=== PATIENT | male | born 1980 | race Caucasian/White ===

== ENCOUNTER 2020-08-04 13:17 | Emergency (ER) | payer BC, SELFPAY ==
[2020-08-04] VITALS (8 sets, daily range): BP systolic 132–167; BP diastolic 89–112; PULSE 92–104; RESP 14–21; TEMP 37.2; O2SAT 96–100
--- NOTE | ~2020-08-04 | XR_ITS ---
EXAMINATION: XR chest 2V EXAM DATE: 08/04/2020 13:39 INDICATION: Left-sided chest pain. TECHNIQUE: Frontal and lateral projections of the chest obtained and reviewed. Comparison is made to prior examination from 11/15/2017. FINDINGS: The lungs are clear. There are no pleural effusions. The cardiomediastinal silhouette is within normal limits. There is no pneumothorax suspected. There is an old right 7th rib fracture an teriorly. IMPRESSION: Normal chest x-ray exam. Reviewed, dictated and finalized at location B. B THERAPY MANAGER IMPRESSION: Normal chest x-ray exam.
--- NOTE | 2020-08-04 13:23 | ECG_ITS ---
Measurements Intervals [place] Rate: 101 P: 40 MS: 183 QRS: -14 QRSD: 108 T: 9 QT: 324 QTc: 420 Interpretive Statements SINUS TACHYCARDIA DELAYED PRECORDIAL R/S TRANSITION VOLTAGE CRITERIA FOR LVH BORDERLINE T WAVE ABNORMALITY- INFERIOR LEADS BORDERLINE ECG Electronically Signed On 08-04-2020 13:38:42 THREAD CLIPPER by Quique Ramos D.O.
[2020-08-04 13:41] LABS: Basophils Absolute Auto 0.1 K/mm3 (0.0-0.1); Eosinophils Absolute Auto 0.4 K/mm3 (0-0.3); Eosinophils Percent Auto 5.3 % (0-4.4); Hematocrit 42.5 % (42.0-52.0); Hemoglobin 14.8 g/dL (14.0-18.0); Immature Granulocyte Absolute 0.03 K/mm3 (0.00-0.031); Immature Granulocyte Percent A 0.4 % (0-0.5); Lymphocytes Percent Auto 37.9 % (18.3-44.2); Mean Corpuscular HGB Conc 34.8 g/dl (32-36); Mean Corpuscular Hemoglobin 29.8 pg (26-34); Mean Corpuscular Volume 85.7 fl (80-100); Mean Platelet Volume 8.6 fl (7.4-10.4); Monocytes Absolute Auto 0.8 K/mm3 (0.1-0.6); Monocytes Percent Auto 9.5 % (2.6-8.5); Neutrophils Absolute Auto 3.8 K/mm3 (1.3-6.7); Neutrophils Percent Auto 45.9 % (45.5-73.1); Platelet Count Result 307 k/mm3 (150-375); Red Blood Count 4.96 M/mm3 (4.6-6.20); Red Cell Distribution Width 12.2 % (11.5-14.5); White Blood Count 8.2 K/mm3 (4.5-10.0)
[2020-08-04 13:53] LABS: INR 0.9; Prothrombin Time 12.8 Seconds (11.1-14.7)
[2020-08-04 13:54] LABS: Partial Thromboplastin Time 26.5 SECONDS (22.3-36.8)
[2020-08-04 13:57] LABS: Anion Gap 9 mmol/L (8-16); Blood Urea Nitrogen 16 mg/dL (9-20); Calcium 9.7 mg/dL (8.4-10.2); Carbon Dioxide 28 mmol/L (22-30); Chloride 103 mmol/L (98-107); Estimated CRCL calculation 139 ml/min; Estimated Glomerular Filt Rate > 60; Glucose 124 mg/dL (75-110); Potassium 3.9 mmol/L (3.4-5.0); Sodium 140 mmol/L (137-145)
[2020-08-04 14:09] LABS: Troponin I < 0.012 ng/mL (0.000-0.034)
[2020-08-04] MEDS: LORazepam INJ (*CRX) 2 MG/ML VIAL 1 MG IV PUSH (16:04)
--- NOTE | 2020-08-04 16:05 | ED.CHESTPAIN ---
HPI - Chest Pain General Chief Complaint: Chest Pain Stated Complaint: Chest heaviness Time Seen by Provider: 08/04/20 15:13 Source: patient Mode of arrival: ambulatory Limitations: no limitations History of Present Illness HPI narrative: Patient is a 40-year-old male who presents to emergency department for evaluation of left-sided body pain has had the symptoms for years typically comes and goes strong history of anxiety currently seeing primary care for this has been taken his 's Xanax sometimes with improvement. Patient notes today he had mild discomfort of the left chest as well as down the left side of his body which is consistent with his chronic findings is scheduled to see cardiology for this denies recent illness injury or trauma Related Data Home Medications Medication Instructions Recorded Confirmed amlodipine 08/04/20 Allergies Allergy/AdvReac Type Severity Reaction Status Date / Time No Known Allergies Allergy Verified 08/04/20 14:16 Review of Systems Review of Systems: All systems reviewed & are unremarkable except as noted in HPI and below PMFSH Family History Family History (Updated 03/08/17 @ 09:29 by DOCTOR UNKNOWN) Mother Patient's mother is in good health Father Patient's father is in good health Social History Social History Smoking status: Former smoker Smoking end date: 07/25/11 Exam Narrative: Exam Narrative: GENERAL: Well-appearing, well-nourished, and in no acute distress. HEAD: Normocephalic, atraumatic. EYES: PERRLA and EOMI. ENT: Nares clear, no rhinorrhea or epistaxis. Mucous membranes moist. CHEST: Clear to auscultation. No respiratory distress. No wheezes rales or rhonchi. Reproducible left-sided chest wall tenderness HEART: Regular rate and rhythm. No murmur heard. Normal peripheral pulses. ABDOMEN: Soft, nontender, nondistended EXTREMITIES: Normal range of motion. No edema. SKIN: Warm, dry, no rash. NEURO: No focal deficits. Alert and oriented x3. Cranial nerves II through XII grossly intact PSYCH: Normal mood and affect. Course Course Emergency Course: Patient symptoms largely chronic no high risk changes in the evaluation today felt appropriate for continued evaluation by primary care Vital Signs Vital signs: Vital Signs Temperature 98.9 F 08/04/20 13:25 Pulse Rate 104 H 08/04/20 13:25 Respiratory Rate 14 08/04/20 13:25 Blood Pressure 167/98 H 08/04/20 13:25 Pulse Oximetry 100 08/04/20 13:25 Temperature 98.9 F 08/04/20 13:25 Pulse Rate 95 08/04/20 14:46 Respiratory Rate 20 08/04/20 14:46 Blood Pressure 132/89 08/04/20 14:46 Pulse Oximetry 96 08/04/20 14:46 MDM - Chest Pain MDM Narrative Medical decision making narrative: Patients EKGs and labs are without significant high risk changes. Cardiac risk factors were reviewed. Patient is felt likely to be low risk for ACS and reasonable for further risk stratification testing as an outpatient. Pain was not sudden or maximal in onset without tearing or ripping. quality. No other signs or symptoms to suggest aortic dissection. A low-risk Wells criteria is noted. PE is felt to be unlikely. No pneumonia or URI symptoms were seen on evaluation today. Patient is felt to b reasonable for continued evaluation as an outpatient. Lab Data Result diagrams: 08/04/20 13:32 08/04/20 13:32 Labs: Lab Results 08/04/20 08/04/20 08/04/20 Range/Units 13:32 13:32 13:32 WBC 8.2 (4.5-10.0) K/mm3 RBC 4.96 (4.6-6.20) M/mm3 Hgb 14.8 (14.0-18.0) g/dL Hct 42.5 (42.0-52.0) % MCV 85.7 (80-100) fl MCH 29.8 (26-34) pg MCHC 34.8 (32-36) g/dl RDW 12.2 (11.5-14.5) % Plt Count 307 (150-375) k/mm3 MPV 8.6 (7.4-10.4) fl Immature Gran % (Auto) 0.4 (0-0.5) % Neut % (Auto) 45.9 (45.5-73.1) % Lymph % (Auto) 37.9 (18.3-44.2) % [place] % (Auto) 9.5
== END 2020-08-04 16:35 | disposition home or self-care (01) ==
PROVIDERS: Emergency Medicine; Emergency Provider Emergency Medicine; PCP Emergency Medicine
DX: R07.89 Other chest pain (principal); Z87.891 Personal history of nicotine dependence; R00.0 Tachycardia, unspecified; R94.31 Abnormal electrocardiogram [ECG] [EKG]
CPT/HCPCS: 36415; 71046; 80048; 84484; 85025; 85610; 85730; 93005; 96374; 99284; J2060

== ENCOUNTER 2020-08-27 06:39 | Outpatient (CLI) | payer BC, SELFPAY ==
--- NOTE | ~2020-08-27 | MR_ITS ---
EXAMINATION: MR cervical spine wo con DATE: 08/27/2020 07:45 INDICATION: Neck pain. Weakness. TECHNIQUE: Magnetic resonance imaging (MRI) of the cervical spine was performed without intravenous c ontrast. Sequences included sagittal T2-weighted FSE, sagittal STIR FSE, sagittal T1-weighted FSE, ax ial MERGE, and axial T2-weighted FSE. COMPARISON: CT cervical spine 01/22/2012 FINDINGS: There is 8 degrees levocurvature of cervical spine. Vertebral body heights are normal. Inte rvertebral disc heights are normal. The spinal cord signal intensity is normal. The following disc le vels are specifically discussed: C2-C3: The disc does not extend beyond the endplate margin. There is no uncovertebral joint osteoarth ritis. There is severe bilateral facet joint osteoarthritis. There is no neural foraminal stenosis. T here is no central canal stenosis. C3-C4: There is a central protrusion. There is mild bilateral uncovertebral joint osteoarthritis. The re is mild right facet joint osteoarthritis. There is mild bilateral neural foraminal stenosis. There is mild central canal stenosis. C4-C5: The disc does not extend beyond the endplate margin. There is no uncovertebral joint osteoarth ritis. There is mild bilateral facet joint osteoarthritis. There is no neural foraminal stenosis. The re is no central canal stenosis. C5-C6: There is a left central extrusion. There is mild bilateral uncovertebral joint osteoarthritis. There is mild bilateral facet joint osteoarthritis. There is mild left neural foraminal stenosis. Th ere is mild central canal stenosis with ventral indentation of the spinal cord. C6-C7: The disc is bulging with superimposed central extrusion. There is mild bilateral uncovertebral joint osteoarthritis. There is severe left facet joint osteoarthritis. There is mild bilateral neura l foraminal stenosis. There is mild central canal stenosis. C7-T1: There is a left central extrusion. There is mild left uncovertebral joint osteoarthritis. Ther e is moderate bilateral facet joint osteoarthritis. There is mild bilateral neural foraminal stenosis . There is mild central canal stenosis. IMPRESSION: 1. Mild cervical spondylosis. Reviewed, dictated and finalized at location A. UTER TYPESETTER KEYLINER
--- NOTE | ~2020-08-27 | MR_ITS ---
EXAMINATION: MR brain/brain stem wo con DATE: 08/27/2020 07:35 INDICATION: Left hemiparesis. TECHNIQUE: Magnetic resonance imaging (MRI) of the brain and brainstem was performed without intraven ous contrast. Sequences included sagittal and axial T1-weighted FSE, axial diffusion-weighted FS EPI, axial T2*-weighted GRE, axial T2-weighted FLAIR Propeller, and axial T2-weighted Propeller. Apparent diffusion coefficient (ADC) maps were created. COMPARISON: Head CT 01/22/2012 FINDINGS: There are scattered areas of nonspecific increased T2-weighted signal intensity in the cere bral white matter. There is no intracranial hemorrhage, acute infarction, or abnormal intracranial ma ss lesion. The ventricles are normal in size. There is mucosal thickening in the paranasal sinuses in cluding complete opacification of the posterior right ethmoid sinuses. The mastoid air cells are norm al. The orbits are normal. IMPRESSION: 1. Mild nonspecific cerebral white matter disease. The differential diagnosis includes premature dry cell tester shaina small vessel ischemic disease (especially if the patient has cardiovascular risk factors), demyel inating disease such as multiple sclerosis, drug abuse, vasculitis, or reactive astrocytosis (gliosis ) secondary to nonspecific etiology. Reviewed, dictated and finalized at location A. TENANCE MECHANIC 2ND SHIFT IMPRESSION: 1. Mild nonspecific cerebral white matter disease. The differential diagnosis i ncludes premature chronic small vessel ischemic disease (especially if the christofer ent has cardiovascular risk factors), demyelinating disease such as multiple sc lerosis, drug abuse, vasculitis, or reactive astrocytosis (gliosis) secondary t o nonspecific etiology.
== END 2020-08-27 06:40 | disposition home or self-care (01) ==
PROVIDERS: PCP Emergency Medicine; Visit Provider Psychiatry & Neurology Neurology
DX: M47.892 Other spondylosis, cervical region (principal); R93.0 Abnormal findings on diagnostic imaging of skull and head, not elsewhere classified
CPT/HCPCS: 70551; 72141

== ENCOUNTER → 2020-09-06 00:54 | Outpatient (CLI) | payer BC, SELFPAY ==
[2020-09-06 19:48] LABS: SARS-CoV-2 RNA PCR Negative
== END ==
PROVIDERS: PCP Emergency Medicine; Visit Provider Emergency Medicine
DX: Z01.812 Encounter for preprocedural laboratory examination (principal); Z20.822 Contact with and (suspected) exposure to COVID-19
CPT/HCPCS: C9803; U0003; U0005

== ENCOUNTER 2020-09-10 08:35 | Outpatient (CLI) | payer BC, SELFPAY ==
--- NOTE | 2020-09-10 09:11 | EST_ITS ---
Patient Info Name: Shashi Gorman Age: 40 years : 1980 Gender: Male Ht: 68 in Wt: 210 lbs BSA: 2.17 m2 Exam Date: 09/10/2020 9:46 AM Exam Location: [facility] Stress Patient Status: Outpatient Admit Date: 09/10/2020 Staff Ordering Physician: Quique Ramos DO Attending Provider: Quique Ramos DO Exercise Technologist: Akshat Odom RDCS, RT Exercise Physician: Quique Ramos DO Exam Type: CA stress test treadmill Study Info A treadmill exercise stress test was performed. Summary 1. 1. Negative Skyler exercise stress test for ischemic ST changes by ECG criteria. 2. 2. Good functional capacity, achieving 12 METs of workload. 3. 3. Appropriate HR response to exercise. 4. 4. Appropriate HR recovery at 1 minute post exercise. 5. 5. No imaging with stress testing. 6. 6. Patient informed of the above results. Protocol: Skyler Stress ECG Details Stage: REST Duration (min): 4 min : 38 sec Speed (mph): 0.0 Grade (%): 0 HR (bpm): 77 SBP (mmHg): 127 DBP (mmHg): 88 METS: --- Stage: REST Duration (min): 4 min : 41 sec Speed (mph): 0.0 Grade (%): 0 HR (bpm): 77 SBP (mmHg): 127 DBP (mmHg): 88 METS: --- Stage: STAGE 1 Duration (min): 1 min : 0 sec Speed (mph): 1.7 Grade (%): 10 HR (bpm): 100 SBP (mmHg): 127 DBP (mmHg): 88 METS: --- Stage: STAGE 1 Duration (min): 2 min : 0 sec Speed (mph): 1.7 Grade (%): 10 HR (bpm): 102 SBP (mmHg): 127 DBP (mmHg): 88 METS: --- Stage: STAGE 1 Duration (min): 3 min : 0 sec Speed (mph): 1.7 Grade (%): 10 HR (bpm): 105 SBP (mmHg): 156 DBP (mmHg): 78 METS: --- Stage: STAGE 2 Duration (min): 1 min : 0 sec Speed (mph): 2.5 Grade (%): 12 HR (bpm): 113 SBP (mmHg): 156 DBP (mmHg): 78 METS: --- Stage: STAGE 2 Duration (min): 2 min : 0 sec Speed (mph): 2.5 Grade (%): 12 HR (bpm): 115 SBP (mmHg): 153 DBP (mmHg): 65 METS: --- Stage: STAGE 2 Duration (min): 3 min : 0 sec Speed (mph): 2.5 Grade (%): 12 HR (bpm): 118 SBP (mmHg): 153 DBP (mmHg): 65 METS: --- Stage: STAGE 3 Duration (min): 1 min : 0 sec Speed (mph): 3.4 Grade (%): 14 HR (bpm): 130 SBP (mmHg): 215 DBP (mmHg): 45 METS: --- Stage: STAGE 3 Duration (min): 2 min : 0 sec Speed (mph): 3.4 Grade (%): 14 HR (bpm): 137 SBP (mmHg): 215 DBP (mmHg): 45 METS: --- Stage: STAGE 3 Duration (min): 3 min : 0 sec Speed (mph): 3.4 Grade (%): 14 HR (bpm): 143 SBP (mmHg): 215 DBP (mmHg): 45 METS: --- Stage: STAGE 4 Duration (min): 1 min : 0 sec Speed (mph): 4.2 Grade (%): 16 HR (bpm): 155 SBP (mmHg): 215 DBP (mmHg): 45 METS: --- Stage: STAGE 4 Duration (min): 2 min : 0 sec Speed (mph): 4.2 Grade (%): 16 HR (bpm): 161 SBP (
== END 2020-09-10 08:36 | disposition home or self-care (01) ==
PROVIDERS: PCP Emergency Medicine; Visit Provider Internal Medicine Cardiovascular Disease
DX: R07.9 Chest pain, unspecified (principal)
CPT/HCPCS: 93017

== ENCOUNTER 2020-09-10 08:38 | Outpatient (CLI) | payer BC, SELFPAY ==
[2020-09-04 08:42] VITALS: BMI 32.0
[2020-09-10] VITALS (7 sets, daily range): BP systolic 122–140; BP diastolic 66–82; PULSE 64–87; RESP 18–28; TEMP 36.5; O2SAT 96–99
--- NOTE | ~2020-09-10 | XR_ITS ---
EXAMINATION: XR lumbar puncture diagnostic DATE: 09/10/2020 11:50 INDICATION: Abnormal brain MR . Extremity weakness. TECHNIQUE: The procedure including the risks and benefits was discussed with the patient. Risks discu ssed included spinal headache, cerebrospinal fluid leak, bleeding, and infection. The patient underst ood the risks and agreed to proceed. A timeout was performed to verify the patient's name, date of , and procedure to be performed. The skin overlying the L4-L5 level was prepped and draped in usual sterile fashion. Subcutaneous 1% lidocaine was used for local anesthesia. A 22 gauge spinal n eedle was advanced under fluoroscopic guidance. The needle was removed and the entry site was cleaned and dressed. There were no immediate complications. The patient was taken to the nursing area for o bservation. FINDINGS: Real-time fluoroscopy demonstrates the needle at the L4-L5 level. Opening pressure was 21 c m water. (Normal range is variably defined as 6-20 cm water and up to 25 cm water in obese patients. Pressure >25 cm water is one of the modified Dandy criteria for idiopathic intracranial hypertension) . 15 mL of clear, colorless fluid was collected in 4 tubes. IMPRESSION: 1. Successful fluoro-guided lumbar puncture with opening pressure of 21 cm water. Reviewed, dictated and finalized at location A. ION ARTIST IMPRESSION: 1. Successful fluoro-guided lumbar puncture with opening pressure of 21 cm tracie meyer
[2020-09-10 10:38] LABS: Basophils Percent Auto 0.7 % (0.2-1.2); Eosinophils Absolute Auto 0.3 K/mm3 (0-0.3); Hematocrit 43.6 % (42.0-52.0); Hemoglobin 14.9 g/dL (14.0-18.0); Immature Granulocyte Absolute 0.01 K/mm3 (0.00-0.031); Immature Granulocyte Percent A 0.2 % (0-0.5); Lymphocytes Absolute Auto 2.34 K/mm3 (0.9-3.2); Lymphocytes Percent Auto 41.2 % (18.3-44.2); Mean Corpuscular HGB Conc 34.2 g/dl (32-36); Mean Corpuscular Volume 87.9 fl (80-100); Mean Platelet Volume 8.7 fl (7.4-10.4); Monocytes Absolute Auto 0.7 K/mm3 (0.1-0.6); Monocytes Percent Auto 12.7 % (2.6-8.5); Neutrophils Absolute Auto 2.2 K/mm3 (1.3-6.7); Neutrophils Percent Auto 39.2 % (45.5-73.1); Platelet Count Result 291 k/mm3 (150-375); Red Blood Count 4.96 M/mm3 (4.6-6.20); Red Cell Distribution Width 12.5 % (11.5-14.5); White Blood Count 5.7 K/mm3 (4.5-10.0)
[2020-09-10 10:47] LABS: INR 0.9; Prothrombin Time 13.2 Seconds (11.1-14.7)
[2020-09-10 11:59] LABS: Glucose CSF 56 mg/dL (40-70); Total Protein CSF 72 mg/dL (12-60)
[2020-09-10 12:38] LABS: Appearance CSF Clear (Clear); CSF source CSF; Color CSF Colorless (Colorless); Lymphocytes CSF 91 % (40-80); Macrophages CSF 1; Monocytes CSF 8 % (15-45); Nucleated Cell CSF 6 /uL (0-5); Red Blood Cell CSF 3 (0-2)
[2020-09-22 13:36] LABS: Albumin, CSF 36.6 mg/dL (8.0-42.0); Albumin, Serum 5.1 g/dL (3.5-5.2); IgG Index, CSF 0.47 (<0.66); IgG, CSF 4.6 mg/dL (0.8-7.7); Immunoglobulin G, Serum 1370 mg/dL (600-1640); Myelin Basic Protein, CSF <2.0 mcg/L (2.0-4.0); Synthesis Rate IgG, CSF -3.9 mg/24 h (-9.9-3.3)
== END 2020-09-10 13:52 | disposition home or self-care (01) ==
PROVIDERS: Radiology Diagnostic Radiology; PCP Emergency Medicine; Visit Provider Emergency Medicine
DX: R93.0 Abnormal findings on diagnostic imaging of skull and head, not elsewhere classified (principal); R53.1 Weakness
CPT/HCPCS: 36415; 62328; 82040; 82042; 82784; 82945; 83873; 83916; 84157; 85025; 85610; 87070; 88108; 89051

== ENCOUNTER 2020-09-22 13:18 | Outpatient (CLI) | payer BC, SELFPAY ==
--- NOTE | ~2020-09-22 | US_ITS ---
EXAMINATION: US carotid duplex BI DATE: 09/22/2020 13:41 INDICATION: Left hemiparesis. TECHNIQUE: Grayscale, color Doppler, and pulsed Doppler images of the cervical carotid arteries were obtained. The degree of vessel stenosis is placed in one of the following categories: normal, <50%, 5 0-69%, >=70% but less than near-occlusion, near-occlusion, or total occlusion. Note that percent sten osis relative to normal distal artery lumen diameter is indirectly measured from velocity measurement s as described by Tavon, et al. Radiology 2003; 229:340-346. COMPARISON: None. FINDINGS: RIGHT: The right common carotid artery (CCA) peak systolic velocity (PSV) is 81 cm/s. The right internal car otid artery (ICA) PSV is 119 cm/s. The right ICA end-diastolic velocity (EDV) is 27 cm/s. The right I CA/CCA PSV ratio is 1.9. Grayscale and color Doppler images yield an estimate of <50% diameter reduct ion from plaque in the ICA. There is antegrade flow in the right vertebral artery. LEFT: The left CCA PSV is 113 cm/s. The left ICA PSV is 77 cm/s. The left ICA EDV is 31 cm/s. The left ICA/ CCA PSV ratio is 1.2. Grayscale and color Doppler images yield an estimate of <50% diameter reduction from plaque in the ICA. There is antegrade flow in the left vertebral artery. IMPRESSION: 1. <50% stenosis in the right internal carotid artery. 2. <50% stenosis in the left internal carotid artery. Reviewed, dictated and finalized at location A. NEONATAL ICU
== END 2020-09-22 13:19 ==
LOC: MICIMG 13:18
PROVIDERS: PCP Emergency Medicine; Visit Provider Emergency Medicine
DX: R90.82 White matter disease, unspecified (principal); I65.23 Occlusion and stenosis of bilateral carotid arteries
CPT/HCPCS: 93880

== ENCOUNTER 2020-09-24 13:39 | Outpatient (CLI) | payer BC, SELFPAY ==
--- NOTE | 2020-09-24 | ECHO_ITS ---
Patient Info Name: Shashi Gorman Age: 40 years : 1980 Gender: Male Ht: 68 in Wt: 210 lbs BSA: 2.17 m2 HR: 79 bpm BP: 146 / 76 mmHg Heart Rhythm: Sinus Rhythm Technical Quality: Good Exam Date: 09/24/2020 2:21 PM Exam Location: [facility] Patient Status: Outpatient Admit Date: 09/24/2020 Staff Ordering Physician: Rinku Bernal MD Office Machinery Or Equipment Installer: Akshat Odom RDCS, RT Attending Provider: Rinku Bernal MD Referring Physician: Gabe ORTEGA; Exam Type: CA echo doppler color flow Study Info Indications R00.2 - Palpitations Complete two-dimensional, color flow and Doppler transthoracic echocardiogram is performed. Strain analysis performed. Summary 1. Complete two-dimensional, color flow and Doppler transthoracic echocardiogram is performed. 2. Left ventricular chamber size, wall thickness, systolic and diastolic function are normal with no regional wall motion abnormalities with an estimated ejection fraction of 60-65%. Global longitudinal strain is also normal at -20%. 3. The aortic root size at the sinus of Valsalva is borderline dilated at 3.6 cm.. 4. No significant valve disease. 5. Normal sinus rhythm. Left Ventricle Left ventricular chamber dimension is normal. Left ventricular systolic function is normal, estimated at 60-65%. There is no increased left ventricular wall thickness. Left ventricular septal wall motion is normal. The left ventricular diastolic function is normal. Global longitudinal strain is normal at -20 %. Left ventricular chamber size, wall thickness, systolic and diastolic function are normal with no regional wall motion abnormalities with an estimated ejection fraction of 60-65%. Global longitudinal strain is also normal at -20%. Right Ventricle Right ventricular chamber dimension is normal. Right ventricular systolic function is normal. Left Atria Left atrial chamber dimension is normal. Right Atria Right atrial chamber dimension is normal. Aortic Valve The aortic valve is trileaflet. There is no aortic valve sclerosis. There is no aortic valve stenosis. There is no aortic valve regurgitation. Pulmonic Valve The pulmonic valve is normal. There is no pulmonic valve stenosis. There is no pulmonic regurgitation. Mitral Valve The mitral valve has normal leaflets. There is no mitral valve stenosis. There is no mitral valve regurgitation. Tricuspid Valve The tricuspid valve leaflets are normal. There is no significant tricuspid valve stenosis. There is no tricuspid valve regurgitation. No pulmonary hypertension, estimated pulmonary arterial systolic pressure is Empty. Pericardium/Pleural The pericardium appears normal. There is no pericardial effusion. Inferior Vena Cava Normal inferior vena cava with >50% collapse upon inspiration consistent with Empty right atrial pressure, Empty. Aorta The aortic root size at the sinus of Valsalva is borderline dilated at 3.6 cm.. The prox ascending aorta size is borderline dilated. Left Ventricular Outflow Tract Name Value Normal LVOT 2D LVOT Diameter 2.3 cm LVOT Doppler LVOT Peak
== END 2020-09-24 13:40 | disposition home or self-care (01) ==
PROVIDERS: PCP Emergency Medicine; Visit Provider Emergency Medicine
DX: R00.2 Palpitations (principal)
CPT/HCPCS: 93306

== ENCOUNTER 2023-10-19 03:35 | Day surgery (SDC) | payer BC, SELFPAY ==
[2023-10-11 15:31] VITALS: BMI 30.4
--- NOTE | 2023-10-17 09:33 | SUR.PREOP ---
Patient called regarding upcoming procedure. Voicemail left regarding appointment times.
[2023-10-19 10:10] VITALS: BP 128/90; PULSE 113; RESP 16; TEMP 36.2; O2SAT 98
[2023-10-19] MEDS: LACTATED RINGERS 1,000 ML 150 ML IV CONT (10:14)
--- NOTE | 2023-10-19 10:45 | P.PNAN_ITS ---
Anes - Initial Pre Proc Eval Procedure: Operation Date: 10/19/23 11:30 Proposed Procedures p Colonoscopy - Fernando Scott MD Date/Time: 10/19/23 10:45 Surgeon: Fernando Scott MD Pre Op Diagnosis: hx colon polyps Patient Data Age: 43 Gender: M Height: 1.73 m Weight: 89.7 kg Last Vital Signs Temp 97.2 F L 10/19/23 10:10 Pulse 113 H 10/19/23 10:10 Resp 16 10/19/23 10:10 BP 128/90 10/19/23 10:10 Pulse Ox 98 10/19/23 10:10 O2 Del Method Room Air 10/19/23 10:10 Allergies Allergy/AdvReac Type Severity Reaction Status Date / Time No Known Allergies Allergy Verified 10/19/23 10:09 Home Medications Medication Instructions Recorded Confirmed Type albuterol sulfate 90 mcg/actuation 1 inh inhalation EVERY OTHER DAY 09/04/20 10/19/23 History aerosol inhaler PRN Shortness Of Breath Adults Multivitamin 1 tab-cap PO DAILY 10/11/23 10/19/23 History dextroamphetamine-amphetamine 20 20 mg PO DAILY PRN ATTENTION 10/11/23 10/19/23 History mg tablet Patient hx anesthesia problems: none Family hx anesthesia problems: none Results Review: All pre-operative results and documents have been reviewed as part of the pre- operative evaluation. [facility] Past Medical History Medical History (Updated 08/28/20 @ 15:40 by Quique Ramos DO) Allergic rhinitis Asthma Attention deficit disorder (ADD), child, with hyperactivity HTN (hypertension) IBS (irritable bowel syndrome) Vitamin D deficiency Family History Family History (Updated 08/05/20 @ 13:30 by Sujatha Dawson CMA) Mother Patient's mother is in good health Father Patient's father is in good health Sibling Celiac disease Social History Social History (Updated 08/05/20 @ 13:30 by Sujatha Dawson CMA) Smoking status: Never smoker Smoking end date: 07/25/11 Alcohol intake: current Drinks per week: 10 Alcohol use details: BEERS Substance use: never Substance use type: does not use Living arrangements: with family Spiritual care concerns: No Anes - Eval Final PreProcedure Day of Procedure 10/19/23 10:45 Patient weight: normal Heart: regular rate and rhythm Lungs: clear to auscultation Airway: Mallampati scale class II Neurological: alert and oriented Last oral intake: >/= 8 hours ASA classification: II Emergent: no Anesthetic plan: proceed Anesthesia type and monitoring: general GIVS and standard monitoring Results Review: All pre-operative results and documents have been reviewed as part of the pre- operative evaluation. Informed Consent: The patient's anesthetic plan and its attendant risks and benefits were discussed with the patient/family/POA. Questions were solicited and answers provided to the satisfaction of the patient/family/POA.
--- NOTE | 2023-10-19 10:50 | PM.HPGS ---
History of Present Illness History of Present Illness Consent: Risks, benefits, and alternatives have been discussed and questions answered. Patient agrees to proceed with procedure. Chief complaint: hx colon polyps Narrative: Shashi Gorman is a 43 year old male with colon polyp 14 years ago Review of Systems Review of Systems: All systems reviewed & are unremarkable except as noted in HPI and below PMFSH Past Medical History Medical History (Updated 10/19/23 @ 10:52 by Fernando Scott MD) Allergic rhinitis Asthma Attention deficit disorder (ADD), child, with hyperactivity Colon polyp HTN (hypertension) IBS (irritable bowel syndrome) Vitamin D deficiency Family History Family History (Updated 08/05/20 @ 13:30 by Sujatha Dawson CMA) Mother Patient's mother is in good health Father Patient's father is in good health Sibling Celiac disease Social History Social History (Updated 08/05/20 @ 13:30 by Sujatha Dawson CMA) Smoking status: Never smoker Smoking end date: 07/25/11 Alcohol intake: current Drinks per week: 10 Alcohol use details: AYANA Substance use: never Substance use type: does not use Living arrangements: with family Spiritual care concerns: No Meds Home Medications and Allergies Home Medications Medication Instructions Recorded Confirmed Type albuterol sulfate 90 mcg/actuation 1 inh inhalation EVERY OTHER DAY 09/04/20 10/19/23 History aerosol inhaler PRN Shortness Of Breath Adults Multivitamin 1 tab-cap PO DAILY 10/11/23 10/19/23 History dextroamphetamine-amphetamine 20 20 mg PO DAILY PRN ATTENTION 10/11/23 10/19/23 History mg tablet Allergies Allergy/AdvReac Type Severity Reaction Status Date / Time No Known Allergies Allergy Verified 10/19/23 10:09 Vital Signs Vital Signs - 24 hr 10/19/23 10:10 Temperature 97.2 F L Pulse Rate 113 H Respiratory Rate 16 Blood Pressure 128/90 Pulse Oximetry 98 Oxygen Delivery Room Air Exam Const: General: comfortable and no acute distress HENMT: Face/Nose/Sinus: Normal nares present Eyes: General: appearance normal, both eyes and all related structures Neck: Neck: no JVD Resp: Auscultation: clear to auscultation bilaterally Cardio: Rate: regular rate Rhythm: regular rhythm GI: Inspection: non-distended GI Palp: Yes Soft to palpation Skin: General skin exam: normal color Neuro: General: gait normal Speech: normal speech Extrem: General: normal to inspection Psych: Mental Status: mental status grossly normal Assessment and Plan Assessment and plan (1) Colon polyp: Code(s): K63.5 - Polyp of colon Status: Acute Assessment and Plan: colonoscopy
[2023-10-19 11:10] VITALS: BP 128/90; PULSE 83; RESP 16; O2SAT 97
[2023-10-19 11:20] VITALS: BP 123/79; PULSE 78; RESP 16; O2SAT 99
[2023-10-19 11:30] VITALS: BP 128/92; PULSE 75; RESP 16; O2SAT 98
== END 2023-10-19 11:45 | disposition home or self-care (01) ==
PROVIDERS: PCP Emergency Medicine; Visit Provider Internal Medicine Gastroenterology
PROC: 0DJD8ZZ Inspection of Lower Intestinal Tract, Via Natural or Artificial Opening Endoscopic (ICD-10-PCS; CPT 45378; principal; 2023-10-19 11:30)
DX: Z12.11 Encounter for screening for malignant neoplasm of colon (principal); K63.5 Polyp of colon; K64.8 Other hemorrhoids; Z79.51 Long term (current) use of inhaled steroids; F90.9 Attention-deficit hyperactivity disorder, unspecified type; J45.909 Unspecified asthma, uncomplicated
CPT/HCPCS: 45385; 88305; J2704; J7120